=== PATIENT | male | born 1970 | race Asian ===

== ENCOUNTER 2018-08-10 08:21 | Emergency (ER) | payer MEDICAID | END 2018-08-10 09:50 | disposition home or self-care (01) | LOC: E/R 08:21 | DX: S60.111A Contusion of right thumb with damage to nail, initial encounter (principal); I10 Essential (primary) hypertension; E11.9 Type 2 diabetes mellitus without complications; W23.0XXA Caught, crushed, jammed, or pinched between moving objects, initial encounter; Y92.9 Unspecified place or not applicable; Z79.84 Long term (current) use of oral hypoglycemic drugs | CPT/HCPCS: 29130; 99282-25 ==